=== PATIENT | male | born 1960 | race Caucasian/White ===

== ENCOUNTER 2018-07-01 13:05 | Inpatient (IN) | payer OTHER ==
[~2018-07-01] VITALS: Ht 195.6 cm; Wt 110.2 kg
[~2018-07-01 13:05] MED LIST: CHLOR-TABLET4 MG PO; KEFLEX500 MG PO; NAPROSYN500 MG PO; NORCO 5-325 TA1 EACH PO
[2018-07-01 13:09] VITALS: BP 180/111
[2018-07-01 13:55] LABS: HEMATOCRIT 42.5 % (42.0-52.0); HEMOGLOBIN 14.2 gm/dL (14.0-18.0); MCHC 33.4 g/dL (28.0-37.0); MCV 89.9 fL (80.0-100.0); MPV 8.2 fl. (7.2-11.1); NUCLEATED RBCS 0 /100WBC; PLATELET COUNT* 222 thou/uL (150-400); RBC 4.73 mil/uL (4.50-6.00); RDW-CV 14.2 % (10.5-14.5); WBC 8.6 thou/uL (4.0-11.0)
[2018-07-01 14:02] LABS: ANION GAP 6 mmol/L (7-16); BUN 20 mg/dL (7-18); CHLORIDE 103 mmol/L (98-107); CO2 27 mmol/L (21-32); CREATININE 1.7 mg/dL (0.6-1.3); GLUCOSE 119 mg/dL (70-99); POTASSIUM 4.1 mmol/L (3.5-5.1); SODIUM 136 mmol/L (136-145)
[2018-07-01 14:04] LABS: APTT 27.8 Seconds (25.0-31.3); PROTIME 10.4 Seconds (9.20-11.50)
[2018-07-01 14:08] LABS: ALBUMIN 4.4 g/dL (3.4-5.0); ALKALINE PHOSPHATASE 96 U/L (46-116); LIPASE 122 U/L (73-393); SGOT 22 U/L (15-37); SGPT 32 U/L (30-65); TOTAL BILIRUBIN 0.8 mg/dL (<0.1-1.0); TOTAL PROTEIN 7.7 g/dL (6.4-8.2); TROPONIN-I LEVEL <0.06 ng/mL (<0.06)
[2018-07-01 14:40] LABS: URINE BILIRUBIN NEGATIVE (Negative); URINE BLOOD 3+ (Negative); URINE CLARITY CLEAR; URINE COLOR YELLOW; URINE GLUCOSE-RANDOM NEGATIVE (Negative); URINE KETONES 1+ (Negative); URINE LEUKOCYTES NEGATIVE (Negative); URINE NITRITE NEGATIVE (Negative); URINE PROTEIN NEGATIVE (Negative); URINE SPECIFIC GRAVITY >= 1.030 (1.005-1.030); URINE UROBILINOGEN 0.2 E.U./dl (0.2-1.0)
[2018-07-01 14:41] LABS: ABSOLUTE LYMPHOCYTES 0.8 thou/uL (0.8-5.3); ABSOLUTE MONOCYTES 0.2 thou/uL (0.0-1.2); ABSOLUTE NEUTROPHILS 7.7 thou/uL (1.6-8.1); ATYPICAL LYMPHS 3 %; PLATELET ESTIMATE ADEQUATE
[2018-07-01 14:47] LABS: BACTERIA None Seen /HPF (None Seen); CASTS None Seen /LPF (None Seen); CRYSTALS None Seen /LPF (None Seen); SQUAMOUS 0-3 Few /LPF (0-3); URINE RBC >20 Many /HPF (0-2); URINE WBC None Seen /HPF (0-5)
[2018-07-01 15:17] VITALS: BP 138/78
[2018-07-01 15:30] VITALS: BP 157/92
[2018-07-01 16:46] VITALS: BP 154/92
[2018-07-01 20:20] VITALS: BP 183/103
[2018-07-02 00:21] VITALS: BP 142/91
[2018-07-02 04:51] LABS: HEMOGLOBIN 13.1 gm/dL (14.0-18.0); MCHC 33.4 g/dL (28.0-37.0); MCV 89.6 fL (80.0-100.0); MPV 8.6 fl. (7.2-11.1); RBC 4.36 mil/uL (4.50-6.00); RDW-CV 13.9 % (10.5-14.5); WBC 9.1 thou/uL (4.0-11.0)
[2018-07-02 05:07] LABS: CALCIUM 8.3 mg/dL (8.5-10.1); CREATININE 1.7 mg/dL (0.6-1.3); MAGNESIUM 2.1 mg/dL (1.8-2.4)
[2018-07-02 09:00] VITALS: BP 130/58; BP 142/91
--- NOTE | 2018-07-02 10:36 | EKG ---
[place] [address] ELECTROCARDIOGRAM REPORT Name: DAMIAN STOLL Room: [address] M.R.#: [id number] Admission: 07/01/18 Attend Phys: Devika Gaston MD Discharge: Date of : 64 Report #: [id number] THIS REPORT FOR: //name// [facility] ED Test Date: 2018-07-01 Test Time: 13:41:47 Pat Name: DAMIAN STOLL Department: Room: [facility] Gender: Development Editor: Jayde ROBLES : 1960 Requested By: Jordyn Forde Order Number: [id number] MD: Dami Prajapati Measurements Intervals [place] Rate: 64 P: 43 NE: 153 QRS: 54 QRSD: 102 T: 24 QT: 406 QTc: 419 Interpretive Statements Sinus arrhythmia Abnormal R-wave progression, early transition No previous ECG available for comparison Electronically Signed On 07-02-2018 10:36:05 CDT by Dami Prajapati [email or web address] <ELECTRONICALLY SIGNED> By: Dami Prajapati MD, [facility] 07/02/18 1036 1341 134 Dami Prajapati MD, [facility] /EPI
[2018-07-02 14:58] VITALS: BP 144/89
[2018-07-02 21:10] VITALS: BP 110/66
[2018-07-03 00:41] VITALS: BP 113/67
[2018-07-03 03:50] VITALS: BP 134/86
[2018-07-03 04:32] LABS: ABSOLUTE NEUTROPHILS 10.1 thou/uL (1.6-8.1); BASOPHILS 0.1 %; HEMATOCRIT 37.9 % (42.0-52.0); HEMOGLOBIN 12.4 gm/dL (14.0-18.0); LYMPHOCYTES 8.1 %; MCH 29.6 pg (26.0-34.0); MCHC 32.7 g/dL (28.0-37.0); MCV 90.7 fL (80.0-100.0); MPV 8.8 fl. (7.2-11.1); NUCLEATED RBCS 0 /100WBC; PLATELET COUNT* 194 thou/uL (150-400); POLYS 83.8 %; RBC 4.18 mil/uL (4.50-6.00)
[2018-07-03 05:05] LABS: CALCIUM 8.2 mg/dL (8.5-10.1); CREATININE 1.3 mg/dL (0.6-1.3)
[2018-07-03 08:30] VITALS: BP 142/84
[2018-07-03 11:08] VITALS: BP 142/84
[2018-07-03 11:12] VITALS: BP 142/84
[2018-07-03] MEDS ORDERED: LEVSIN0.125 MG PO (11:15)
[2018-07-03] MEDS ORDERED: PHENAZOPYRIDIN200 M2 PO (11:17)
[2018-07-03] MEDS ORDERED: NORCO 5-325 TA1 EACH PO (11:19)
[2018-07-03 18:44] VITALS: BP 142/84
--- NOTE | 2018-07-05 12:48 | OP ---
[facility] [address] [place] [address] OPERATIVE REPORT Name: DAMIAN STOLL Room: [address]R.#: [id number] Admission: 07/01/18 Attend Phys: Devika Gaston MD Discharge: 07/03/18 Date of : 64 Report #: [id number] THIS REPORT FOR: //name// CC: Devika Burk DATE OF SERVICE: 07/02/2018 PREOPERATIVE DIAGNOSES: Left ureteral calculus and flank pain. POSTOPERATIVE DIAGNOSES: Left ureteral calculus and flank pain. PROCEDURE: Cystoscopy, left retrograde pyelogram, left ureteroscopy, laser lithotripsy, stone extraction, stent placement. SURGEON: Dami Bowie M.D. ANESTHESIA: General. ESTIMATED BLOOD LOSS: None. DRAINS: 6 x 28 left ureteral stent. SPECIMENS: Stone fragments. COMPLICATIONS: None. INDICATIONS: This is a 57-year-old male with left flank pain. CT scan reveals a left distal ureteral calculus. He has renal insufficiency. We discussed options for management and he has decided to undergo cystoscopy, left retrograde pyelogram, left ureteroscopy, laser stone manipulation, stent placement. Risks of procedure were explained including but not limited to bleeding, infection, anesthesia, cardiopulmonary and vascular events, injuries to urethra, bladder, ureter; possible development of strictures, possible need for further procedures, possible inability to bypass obstruction. We discussed stent discomfort and symptoms and the need for timely followup regarding any stent left in place. He voices clear understanding of all this and wants to proceed. DESCRIPTION OF PROCEDURE: The patient was pretreated with IV Cipro. After induction of general anesthesia, he was positioned, prepped and draped in the lithotomy position. Cystourethroscopy was performed. The anterior and posterior urethra are unremarkable. Bladder was entered and systematically examined. The ureteral orifices are orthotopic with no blood seen from either. Systematic examination of the bladder does not reveal any lesions. A 5-Tajik ureteral catheter was used to perform a left retrograde pyelogram, which reveals a filling defect in the mid ureter with mild dilation proximally[place] [address] OPERATIVE REPORT Name: DAMIAN STOLL Room: [address] [facility].#: [id number] Admission: 07/01/18 Attend Phys: Devika Gaston MD Discharge: 07/03/18 Date of : 64 Report #: [id number] guidance was used to advance a Sensor wire. This was passed to the renal pelvis with fluoroscopic guidance. The scope was removed leaving the wire in place. A semirigid ureteroscope was advanced alongside the wire and into the ureter. This passed easily with pressure irrigation to the level of the stone, which was engaged with a 365 micron holmium laser fiber. Laser lithotripsy was performed. The stone broke up nicely at 6.4 hong. Care was taken to avoid injury to the ureter and the wire. Fragments were extracted with a 0 tip basket and sent for analysis. Repeat ureteroscopy revealed edema in the prior location of the stone. There were no remaining stone fragments visible through the ureteroscope or fluoroscopically. Scope was withdrawn, leaving the wire in place and the wire was loaded onto the cystoscope and used for placement of a 6 x 28 left ureteral stent. Good position was confirmed in the renal pelvis fluoroscopically and in the bladder visually. The bladder was emptied and the scope was removed. Lidocaine jelly was given per urethra. The patient tolerated the procedure well and was taken to the recovery room in stable condition. PLAN: Will be to recheck his renal function tomorrow with tentative plans for outpatient radiograph and stent removal in approximately 1 week if radiograph does not show any residual ureteral fragments. <ELECTRONICALLY SIGNED> By: Dami Bowie MD 07/05/18 1248 1711 1922Jovioletta Bowie MD /nt
[2018-07-12 17:11] LABS: STONE CA OXALATE MONOHYDRATE 98 % (()); STONE COLOR Brown (()); STONE WEIGHT 36.1 mg (())
== END 2018-07-03 14:15 | disposition home or self-care (01) | DRG 660 ==
LOC: M.ERS 13:05 → M.ORTHSURG 14:51 → M.TBA-ER 14:51 → M.ORTHSURG 15:22
PROVIDERS: Internal Medicine; Physician Assistant; ADMIT Internal Medicine
PROC: 2W3DX1Z Immobilization of Left Lower Arm using Splint (ICD-10-PCS; 2018-07-01)
PROC: BT1F1ZZ Fluoroscopy of Left Kidney, Ureter and Bladder using Low Osmolar Contrast (ICD-10-PCS; principal; 2018-07-02)
PROC: 0TC78ZZ Extirpation of Matter from Left Ureter, Via Natural or Artificial Opening Endoscopic (ICD-10-PCS; principal; 2018-07-02)
PROC: 0T778DZ Dilation of Left Ureter with Intraluminal Device, Via Natural or Artificial Opening Endoscopic (ICD-10-PCS; principal; 2018-07-02)
DX: N13.2 Hydronephrosis with renal and ureteral calculous obstruction (principal); J98.11 Atelectasis; S62.397A Other fracture of fifth metacarpal bone, left hand, initial encounter for closed fracture; N17.9 Acute kidney failure, unspecified; I10 Essential (primary) hypertension; E78.00 Pure hypercholesterolemia, unspecified; E86.0 Dehydration; F17.220 Nicotine dependence, chewing tobacco, uncomplicated; N32.89 Other specified disorders of bladder; E78.5 Hyperlipidemia, unspecified; W01.0XXA Fall on same level from slipping, tripping and stumbling without subsequent striking against object, initial encounter; Y93.89 Activity, other specified; Y92.89 Other specified places as the place of occurrence of the external cause; Y99.8 Other external cause status; Z84.1 Family history of disorders of kidney and ureter